=== PATIENT | male | born 1960 | race Caucasian/White ===

== ENCOUNTER 2016-10-25 11:45 | Emergency (ER) | payer BC ==
[2016-10-25] MEDS ORDERED: DEXAMETHASONE SOD PHOSPHATE 10MG/ML VIAL PO ONE (12:06)
--- NOTE | 2016-10-25 12:12 | Emergency Department Record ---
History of Present Illness - General Chief complaint: Cold Stated complaint: COLD Time Seen by Provider: 10/25/16 12:02 Source: Patient, Family Mode of Arrival: Ambulatory Limitations: No limitations - History of Present Illness Initial comments: 55 yo male presents with congestion and sore throat for 4 days. It stated with facial/sinus pressure and now is mostly the sore throat. No fevers. No NVD. No rash. No ear pain. No changes in voice. No significant cough or shortness of breath. MD complaint: Sore throat Onset/Timin -: Days(s) Location: Throat Severity: Moderate Severity scale (1-10): 8 Consistency: Constant Improves with: None Worsens with: None Associated Symptoms: Cough, Pain with swallowing, Sore throat - Related Data Home Medications Medication Instructions Recorded Confirmed Last Taken Atenolol [Tenormin] 50 mg PO QD tab 08/19/16 10/25/16 10/25/16 Previous Rx's Medication Instructions Recorded Azithromycin [Zithromax] 250 mg PO DAILY #6 tab 10/25/16 Allergies Allergy/AdvReac Type Severity Reaction Status Date / Time No Known Allergies Allergy no Verified 10/25/16 11:56 allergies Travel Screening - Travel/Exposure Within Last 30 Days Have you traveled within the last 30 days?: No Review of Systems Constitutional: Denies: Chills, Fever, Malaise, Weakness Eyes: Denies: Eye discharge ENT: Reports: Congestion, Throat pain. Denies: Ear pain, Epistaxis, Hearing loss Respiratory: Denies: Cough, Dyspnea, Hemoptysis, Stridor, Wheezes Cardiovascular: Denies: Chest pain, Palpitations, Syncope Endocrine: Denies: Fatigue Gastrointestinal: Denies: Abdominal pain, Diarrhea, Nausea, Vomiting Genitourinary: Denies: Dysuria, Frequency Musculoskeletal: Denies: Arthralgia, Back pain, Joint swelling, Myalgia, Neck pain Skin: Denies: Change in color, Rash Neurological: Denies: Headache Psychiatric: Denies: Anxiety Hematological/Lymphatic: Denies: Blood Clots, Easy bleeding, Easy bruising, Swollen glands Past Medical History - SOCIAL HISTORY Smoking Status: Former smoker Alcohol Use: Rare Drug Use: None - RESPIRATORY Hx Respiratory Disorders: No - CARDIOVASCULAR Hx Cardio Disorders: Yes Hx Hypertension: Yes - NEURO Hx Neuro Disorders: No - GI Hx GI Disorders: No - Hx Genitourinary Disorders: Yes 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 negative: Conjunctival injection - ENT ENT exam: Mucous membranes moist, Normal external ear exam, TM's normal bilaterally. negative: Mucous membranes dry, Normal orophraynx Ear exam: Normal external inspection. negative: External canal tenderness Nasal Exam: Discharge (clear), Sinus tenderness (frontal and maxillary). negative: Dried blood Mouth exam: Normal external inspection, Tongue normal Teeth exam: Normal inspection. negative: Dental caries Throat exam: Tonsillar erythema. negative: Tonsillomegaly, Tonsillar exudate, R peritonsillar mass, L peritonsillar mass - Neck Neck exam: Normal inspection, Full ROM, Lymphadenopathy (small anterior cervical , mild). negative: Tenderness - Respiratory Respiratory exam: Normal lung sounds bilaterally. negative: Accessory muscle use, Respiratory distress, Rhonchi, Stridor, Wheezes - Cardiovascular Cardiovascular Exam: Regular rate, Normal rhythm, Normal heart sounds - GI/Abdominal GI/Abdominal exam: Soft. negative: Guarding, Tenderness - Rectal Rectal exam: Deferred - exam: Deferred - Extremities Extremities exam: Normal inspection, Full ROM, Normal capillary refill. negative: Tenderness - Back Back exam: Reports: Normal inspection, Full ROM. Denies: Muscle spasm, Rash noted, Tenderness - Neurological Neurological exam: Alert, Normal gait, Oriented X3 - Psychiatric Psychiatric exam: Normal affect, Normal mood - Skin Skin exam: Dry, Intact, Normal color, Warm Course Vital Signs 10/25/16 11:50 Temperature 98.0 F Pulse Rate 89 Respiratory 16 Rate Blood Pressure 158/96 Pulse Ox 98 - Reevaluation(s) Reevaluation #1: Strep screen sent Mild erythema, no pus, no mass, S/P T and A Uvula is normal 10/25/16 12:09 Reevaluation #2: negative strep lab called to add a culture DC with Rx for Zithromax 10/25/16 12:28 Disposition Disposition: Discharge Clinical Impression: Pharyngitis Qualifiers: Pharyngitis/tonsillitis etiology: other specified organisms Qualified Code(s): J02.8 - Acute pharyngitis due to other specified organisms Sinusitis Qualifiers: Sinusitis location: frontal Chronicity: acute Recurrence: not specified as recurrent Qualified Code(s): J01.10 - Acute frontal sinusitis, unspecified Disposition: Home, Self-Care Condition: (1) Good Instructions: Pharyngitis (ED), Sinusitis (ED) Additional Instructions: Return if worse Stay well hydrated and rest Call your doctor first of the week for close follow up Prescriptions: Azithromycin [Zithromax] 250 mg PO DAILY #6 tab Forms: Patient Portal Access Time of Disposition: 12:12
== END 2016-10-25 12:32 | disposition home or self-care (01) ==
LOC: ER 11:45
DX: J02.8 Acute pharyngitis due to other specified organisms (principal); J01.10 Acute frontal sinusitis, unspecified
CPT/HCPCS: 87880; J1100; 99282

== ENCOUNTER 2018-10-25 08:49 | Day surgery (SDC) | payer BC ==
[2018-10-25] MEDS ORDERED: PROPOFOL 10 MG/ML VIAL IV ONE (08:50)
[2018-10-25] MEDS ORDERED: LIDOCAINE 2% MDV (20MG/ML) 20ML VIAL IV ONE (08:50)
[2018-10-25] MEDS ORDERED: MIDAZOLAM HCL 2MG/2ML VIAL IV ONE (08:50)
--- NOTE | 2018-10-26 09:30 | Operative Note ---
DATE OF SURGERY: 10/25/2018 OPERATION: COLONOSCOPY to the cecum with cold biopsy forceps polypectomy x1 and cold snare polypectomy x2. INDICATION: Prior history of adenomatous polyps. The patient returns at this time 3 years later for surveillance. ANESTHESIA: Intravenous sedation was administered by the department of anesthesiology and included Diprivan titrated to effect. PROCEDURE: Following informed consent from this alert individual including a discussion of the risks and benefits of the procedure and an opportunity for the patient to ask questions, the patient was in the left lateral decubitus position. A digital rectal examination was performed. No abnormalities were noted. Following this, the Olympus [id number] video colonoscope was inserted into the rectum without resistance. The rectal mucosa had a normal appearance with normal folds and distensibility. The colonoscope was advanced up through the bowel to the level of the cecum without much difficulty. Throughout the bowel the mucosa appeared normal, the folds were normal, and the bowel was fairly well distensible. The colon preparation was good. The cecum was defined by noting the appendiceal orifice and ileocecal valve. Retroflexion in the cecum was endoscopically unremarkable. Across from the ileocecal valve, there was a 5 mm polyp noted which was removed with cold snare polypectomy and suctioned through the colonoscope into a collection trap. In the distal transverse colon, there was a diminutive 3 mm polyp removed with biopsy forceps. In the proximal descending colon, there was a 4 mm polyp removed with cold snare polypectomy. No other changes were appreciated until the rectum was reached. Retroflexion in the rectum revealed small internal hemorrhoids. The endoscope was straightened and removed. The patient tolerated the procedure well and was returned to the recovery area in stable condition. IMPRESSION: 1. A 5 mm cecal polyp removed with cold snare polypectomy. 2. A 3 mm transverse colon polyp removed with biopsy forceps. 3. A 4 mm descending colon polyp removed with cold snare polypectomy. 4. Small internal hemorrhoids. RECOMMENDATIONS: The patient was advised he should receive a copy of his pathology report at home in the next 2-3 weeks. If not, he was asked to call my office to review the results of testing today. Further recommendations will be forthcoming pending those results. Followup will be with Jorge A Mondragon DO. As always, thank you for allowing me to participate in the care of your patient. CC: DO VIC Kirby
== END 2018-10-25 11:00 | disposition home or self-care (01) ==
LOC: HOP 08:49
PROVIDERS: ATTEND Internal Medicine Gastroenterology
DX: Z09 Encounter for follow-up examination after completed treatment for conditions other than malignant neoplasm (principal); Z86.010 Personal history of colon polyps; D12.0 Benign neoplasm of cecum; D12.4 Benign neoplasm of descending colon; D12.3 Benign neoplasm of transverse colon; I10 Essential (primary) hypertension